=== PATIENT | male | born 1980 | race Caucasian/White ===

== ENCOUNTER 2020-08-24 16:28 | Emergency (ER) | payer OTHER ==
--- NOTE | 2020-08-24 17:11 | EDM.PDOC ---
ED HPI GENERAL MEDICAL PROBLEM - General Chief Complaint: Back Pain or Injury Stated Complaint: BACK ISSUES Time Seen by Provider: 08/24/20 16:50 Source of Information: Reports: Patient History Limitations: Reports: No Limitations - History of Present Illness INITIAL COMMENTS - FREE TEXT/NARRATIVE: This 40 yo male patient reports to the ED due to lower back/right upper hip pain . The patient reports he was doing a drill through [employer] when his hands slipped off a cable and he fell approximately 10 feet to the ground. The patient reports he did have a helmet on a the time of the fall, but has been experiencing left lower back/hip pain since the fall. The patient reports he did hit his protected head, but had no loss of consciousness before, during or after the fall. The patient reports the incident happened this morning at about 1100. Onset: Today Duration: Hour(s):, Constant Location: Reports: Back, Pelvis Quality: Reports: Ache, Dull Severity: Moderate Improves with: Reports: Rest Worsens with: Reports: Movement Context: Reports: Activity Associated Symptoms: Reports: No Other Symptoms - Related Data Allergies Allergy/AdvReac Type Severity Reaction Status Date / Time Penicillins Allergy Cannot Verified 08/24/20 17:02 Remember Home Meds: Home Meds Cyproheptadine HCl 2 mg PO BID 08/24/20 [History] Oxybutynin 2.5 mg PO QID 08/24/20 [History] PARoxetine HCL [Paroxetine HCl] 40 mg PO DAILY 08/24/20 [History] Prazosin HCl [Prazosin] 2 mg PO DAILY 08/24/20 [History] atoMOXetine HCl [Atomoxetine HCl] 40 mg PO DAILY 08/24/20 [History] buprenorphine HCL [Belbuca] 300 mcg BC DAILY 08/24/20 [History] busPIRone HCl [Buspirone HCl] 30 mg PO BID 08/24/20 [History] ED ROS GENERAL - Review of Systems Review Of Systems: Comprehensive ROS is negative, except as noted in HPI. ED EXAM,LOWER BACK PAIN/INJURY - Physical Exam Exam: See Below Exam Limited By: No Limitations General Appearance: Alert, WD/WN, Mild Distress Eye Exam: Bilateral Eye: EOMI, Normal Inspection, PERRL Ears: Normal External Exam, Normal Canal, Hearing Grossly Normal, Normal TMs Nose: Normal Inspection, Normal Mucosa, No Blood Throat/Mouth: Normal Inspection, Normal Lips, Normal Teeth, Normal Gums, Normal Oropharynx, Normal Voice, No Airway Compromise Head: Atraumatic, Normocephalic Neck: Normal Inspection, Supple, Non-Tender, Full Range of Motion Respiratory/Chest: No Respiratory Distress, Lungs Clear, Normal Breath Sounds, No Accessory Muscle Use, Chest Non-Tender Cardiovascular: Normal Peripheral Pulses, Regular Rate, Rhythm, No Edema, No Gallop, No JVD, No Murmur, No Rub GI/Abdominal: Normal Bowel Sounds, Soft, Non-Tender, No Organomegaly, No Distention, No Abnormal Bruit, No Mass (Male) Exam: Deferred Rectal (Males) Exam: Deferred Back Exam: Paraspinal Tenderness (left lower back) Extremities: Leg Pain (left hip/pelvic pain) Neurological: Alert, Normal Mood/Affect, Normal Dorsiflexion, CN II-XII Intact, Normal Plantar Flexion, Normal Reflexes, No Motor/Sensory Deficits, Oriented x 3 Psychiatric: Normal Affect, Normal Mood Skin Exam: Other (contusion to left lower back/hip) Lymphatic: No Adenopathy Course - Vital Signs Last Recorded V/S: Last Vital Signs Temp 98.2 F 08/24/20 16:51 Pulse 96 08/24/20 16:51 Resp 14 08/24/20 16:51 BP 149/98 H 08/24/20 16:51 Pulse Ox 98 08/24/20 16:51 - Orders/Labs/Meds Meds: Medications Discontinued Medications Generic Name Dose Route Start Last Admin Trade Name Freq PRN Reason Stop Dose Admin Ketorolac Tromethamine 30 mg 08/24/20 17:35 Ketorolac 30 Mg/Ml Sdv IM 08/24/20 17:36 ONETIME ONE Orphenadrine Citrate 60 mg 08/24/20 17:37 Orphenadrine 60 Mg/2 Ml Inj IM 08/24/20 17:38 ONETIME ONE Departure - Departure Time of Disposition: 17:39 Disposition: Home, Self-Care 01 Condition: Fair Clinical Impression: Low back strain Qualifiers: Encounter type: initial encounter Qualified Code(s): S39.012A - Strain of muscle, fascia and tendon of lower back, initial encounter Contusion, back Qualifiers: Encounter type: initial encounter Laterality: left Qualified Code(s): S20.222A - Contusion of left back wall of thorax, initial encounter - Discharge Information *PRESCRIPTION DRUG MONITORING PROGRAM REVIEWED*: Not Applicable *COPY OF PRESCRIPTION DRUG MONITORING REPORT IN PATIENT HANY: Not Applicable Instructions: Lumbosacral Strain, Contusion, [id number] Forms: ED Department Discharge Care Plan Goals: The patient was advised of the examination and x-ray results during the visit. The patient was given an injection of Toradol (30 mg) and Flexeril (60 mg) while in the ED. The patient was discharged with a script for Toradol (10 mg) #20 to take 1 by mouth 4 times per day and Flexeril (10 mg) #20 to take 1 by mouth at bedtime as needed. If the patient has any additional symptoms or concerns, the patient should either return to the emergency department or visit his primary care facility. Sepsis Event Note (ED) - Focused Exam Vital Signs: Vital Signs Temp Pulse Resp BP Pulse Ox 08/24/20 16:51 98.2 F 96 14 149/98 H 98
--- NOTE | 2020-08-24 17:19 | CR ---
PROCEDURE INFORMATION: Exam: XR Pelvis Exam date and time: 08/24/2020 4:59 PM Age: 40 years old Clinical indication: Other: Fall/pain TECHNIQUE: Imaging protocol: XR pelvis. Views: 1 or 2 view. COMPARISON: No relevant prior studies available. FINDINGS: Bones/joints: Unremarkable. No acute fracture. Soft tissues: Unremarkable. IMPRESSION: No acute findings.
--- NOTE | 2020-08-24 17:22 | CR ---
PROCEDURE INFORMATION: Exam: XR Lumbosacral Spine Exam date and time: 08/24/2020 5:03 PM Age: 40 years old Clinical indication: Other: Fall/pain; Additional info: Lower back pain due to fall TECHNIQUE: Imaging protocol: XR of the lumbosacral spine. Views: 2 or 3 views. COMPARISON: CR Pelvis 1V or 2V 08/24/2020 4:59 PM FINDINGS: Bones/joints: Normal. No acute fracture. Normal alignment. Soft tissues: Unremarkable. IMPRESSION: No acute findings.
[2020-08-24] MEDS ORDERED: Ketorolac 30 MG/ML SDV IM ONE (17:35)
[2020-08-24] MEDS ORDERED: Orphenadrine 60 MG/2 ML Inj IM ONE (17:37)
== END 2020-08-24 17:53 | disposition home or self-care (01) ==
LOC: DL.ED 16:28
DX: S39.012A Strain of muscle, fascia and tendon of lower back, initial encounter (principal); S70.02XA Contusion of left hip, initial encounter; Z88.0 Allergy status to penicillin; W17.89XA Other fall from one level to another, initial encounter
CPT/HCPCS: 72100; 72170; 96372; 99283; 99283-25; J1885; J2360